=== PATIENT | male | born 1970 | race Caucasian/White ===

== ENCOUNTER 2021-07-13 05:32 | Emergency (ER) | payer MEDICARE ==
[~2021-07-13] VITALS: Ht 162.6 cm; Wt 59.1 kg
[2021-07-13 05:58] VITALS: BP 131/85
== END 2021-07-13 08:52 | disposition home or self-care (01) ==
LOC: ER 05:33
DX: S67.22XA Crushing injury of left hand, initial encounter (principal); M19.90 Unspecified osteoarthritis, unspecified site; G89.29 Other chronic pain; F17.200 Nicotine dependence, unspecified, uncomplicated; Z72.89 Other problems related to lifestyle; W27.8XXA Contact with other nonpowered hand tool, initial encounter; Y93.89 Activity, other specified; Y92.89 Other specified places as the place of occurrence of the external cause; Y99.8 Other external cause status
CPT/HCPCS: 73130; 99283